=== PATIENT | female | born 1970 | race Caucasian/White ===

== ENCOUNTER 2019-03-20 18:34 | Emergency (ER) | payer MEDICARE, SELFPAY ==
--- NOTE | 2019-03-20 18:41 | ED.GENADULT ---
HPI - General Adult General Chief complaint: Upper Respiratory Infection Stated complaint: head cold Time Seen by Provider: 03/20/19 19:13 Source: patient Mode of arrival: ambulatory Limitations: no limitations and physical limitation (deaf) History of Present Illness HPI narrative: 48-year-old female patient presents to the [facility] with complaints of cold symptoms that started yesterday. Patient states she has had a headache, nasal congestion, fullness to the ears but denies any sore throat or coughing. Denies any chest pain or shortness of breath. Patient states that she did get a flu shot this year. Patient states that she is an active smoker. Patient states she has tried taking some Aleve but that is it Related Data Home Medications Medication Instructions Recorded Confirmed insulin glargine [Lantus U-100 20 unit SUBCUT HS 03/20/19 03/20/19 Insulin] insulin lispro [Humalog U-100 5 unit SUBCUT TID 03/20/19 03/20/19 Insulin] Allergies Allergy/AdvReac Type Severity Reaction Status Date / Time No Known Allergies Allergy Verified 03/20/19 19:04 Review of Systems Review of Systems: Narrative: CONSTITUTIONAL: Positive for subjective fever, chills, body aches and sweats. EYES: Denies visual changes, redness, or discharge. ENT: Positive rhinorrhea, congestion, denies sore throat, or otalgia. CARDIOVASCULAR: Denies chest pain, palpitations, or edema. RESPIRATORY: Denies cough or dyspnea. GASTROINTESTINAL: Denies abdominal pain, nausea, vomiting, or diarrhea. GENITOURINARY: Denies dysuria or hematuria. SKIN: Denies rash or itching. MUSCULOSKELETAL: Denies back pain, joint pain, or myalgia. NEUROLOGIC: Positive headache, denies numbness, or weakness. PSYCHIATRIC: Denies anxiety or depression. PMFSH Comments At the time of my signature I agree with nursing past medical history, surgical, social, and family history. There is no relevant family history pertinent to the presenting complaint. Exam Narrative: Exam Narrative: GENERAL: ill-appearing, well-nourished, and in no acute distress. HEAD: Normocephalic, atraumatic. No tenderness noted to frontal maxillary sinuses on palpation EYES: PERRLA and EOMI. ENT: Nares with erythema and edema noted bilaterally, no rhinorrhea or epistaxis. Mucous membranes moist. Posterior pharynx with no erythema, tonsillar margin, exudates or lesions present. Bilateral TMs are clear with no erythema or foreign bodies in the canal. NECK: Supple. No lymphadenopathy CHEST: Clear to auscultation. No respiratory distress. HEART: Regular rate and rhythm. No murmur heard. Normal peripheral pulses. ABDOMEN: Soft, nontender, nondistended, normal active bowel sounds. EXTREMITIES: Normal range of motion. No edema. SKIN: Warm, dry, no rash. NEURO: No focal deficits. Alert and oriented x3. Course Reevaluation(s) Reevaluation #1: Notify patient that her bedside influenza test is negative today. Discussed with her we will treat her as a virus and discharge her home with a nasal steroid and a daily antihistamine to help with the congestion symptoms she can continue taking Tylenol and ibuprofen as needed for body aches fevers and pains and will take anywhere from 5 days to 2 weeks for the virus past. Patient verbalized understanding denies any other questions or concerns at this time. Date: 03/20/19 Time: 19:37 Vital Signs Vital signs: Vital Signs Temperature 37.2 C 03/20/19 18:50 Pulse Rate 80 03/20/19 18:50 Respiratory Rate 16 03/20/19 18:50 Blood Pressure 135/80 03/20/19 18:50 Pulse Oximetry 99 03/20/19 18:50 Temperature 37.2 C 03/20/19 18:50 Pulse Rate 80 03/20/19 18:50 Respiratory Rate 16 03/20/19 18:50 Blood Pressure 135/80 03/20/19 18:50 Pulse Oximetry 99 03/20/19 18:50 Vital signs reviewed The patient has been informed that they may have pre-hypertension or Hypertension based on a BP reading in the department. I recommend that the patient call the
[2019-03-20 18:50] VITALS: BP 135/80; PULSE 80; RESP 16; TEMP 37.2; O2SAT 99
== END 2019-03-20 19:47 | disposition home or self-care (01) ==
PROVIDERS: Emergency Provider Nurse Practitioner Family
DX: J06.9 Acute upper respiratory infection, unspecified (principal); J00 Acute nasopharyngitis [common cold]; J01.90 Acute sinusitis, unspecified; R05 Cough; E11.9 Type 2 diabetes mellitus without complications; Z79.4 Long term (current) use of insulin
CPT/HCPCS: 87804; 99203; G0463

== ENCOUNTER 2019-07-13 11:47 | Emergency (ER) | payer MEDICARE, SELFPAY ==
[2019-07-13 12:26] VITALS: BP 144/79; PULSE 106; RESP 20; TEMP 36.6; O2SAT 99
--- NOTE | 2019-07-13 12:40 | ED.DENTAL ---
HPI - Dental/Oral General Chief complaint: Dental/Oral Stated complaint: Tooth pain Time Seen by Provider: 07/13/19 12:40 Source: patient and RN notes reviewed Mode of arrival: ambulatory Limitations: other (deaf; mouth reading/written) History of Present Illness HPI Narrative: This is a 49 years old female presented office for evaluation of dental pain for one week. Associated with facial swelling and pain. Pain is getting worse for the couple days; states she has been eating much due to pain. She has tried otc pain relief along with mouth wash. Teeth map: 1. gum is swelling; tooth is very carious. Related Data Home Medications Medication Instructions Recorded Confirmed insulin detemir U-100 [Levemir 32 unit SUBCUT DAILY 07/13/19 07/13/19 U-100 Insulin] levothyroxine 112 mcg PO DAILY 07/13/19 07/13/19 lisinopril 2.5 mg PO DAILY 07/13/19 07/13/19 lovastatin 20 mg PO DAILY 07/13/19 07/13/19 metformin 1,000 mg PO DAILY 07/13/19 07/13/19 sertraline 50 mg PO DAILY 07/13/19 07/13/19 Allergies Allergy/AdvReac Type Severity Reaction Status Date / Time No Known Allergies Allergy Verified 07/13/19 12:28 Review of Systems Review of Systems: Narrative: CONSTITUTIONAL: Denies fever. Reports chills/sweat ENT: Reports dental pain with facial swelling and warmth to touch CARDIOVASCULAR: Denies chest pain; however she reports that her heart rate is a little fast. RESPIRATORY: Denies dyspnea GASTROINTESTINAL: Denies abdominal pain,vomiting, diarrhea. Reports nausea. SKIN: Denies rash MUSCULOSKELETAL: Denies acute back pain NEUROLOGIC: Denies lightheaded PMFSH Comments At time of signature, I agree with nursing past medical, surgical, social and family history. There is no relevant family history pertinent to the presenting complaint. Exam Narrative: Exam Narrative: GENERAL: This is a well-nourished, well-developed patient, in no apparent distress. ENT: The tooth in question is very carious and the gum is swollen and tender around it. There is no facial swelling, cervical or submandibular lymphadenopathy. The patient appears uncomfortable and in pain. CARDIOVASCULAR: Regular rate and rhythm without murmurs, gallops, or rubs. RESPIRATORY: Clear to auscultation. Breath sounds equal bilaterally. No wheezes, rales, or rhonchi. GASTROINTESTINAL: Abdomen soft, non-tender, nondistended. Bowel sounds are active. No guarding. NEURO: awake, alert, and oriented to person, place and time. There were no obvious focal neurologic abnormalities. Course Vital Signs Vital signs: Vital Signs Temperature 97.9 F 07/13/19 12:26 Pulse Rate 106 H 07/13/19 12:26 Respiratory Rate 07/13/19 12:26 Blood Pressure 144/79 H 07/13/19 12:26 Pulse Oximetry 99 07/13/19 12:26 Temperature 97.9 F 07/13/19 12:26 Pulse Rate 106 H 07/13/19 12:26 Respiratory Rate 07/13/19 12:26 Blood Pressure 144/79 H 07/13/19 12:26 Pulse Oximetry 99 07/13/19 12:26 MDM - Dental/Oral MDM Narrative Medical decision making narrative: Elevated BP noted: I recommend the patient call the primary care provider listed on their discharge instructions to arrange follow-up for further evaluation of hypertension within 1-2week. Discharge instructions reviewed with patient, as well as provided in writing per nursing staff. The instructions also include specific and strict return/GO TO THE ER as well as f/u information. All questions have been answered, and the patient deny any further questions with discharge and discharge plan. Differential Diagnosis Differential diagnosis: Likely gingival abscess, dental caries, toothache, dental abscess, fracture of tooth and aphthous ulcer Critical Care Time Critical Care Time Critical Care Time: No Discharge Plan Discharge Clinical Impression: Dental abscess Patient Disposition: Home, Self-Care Condition: Stable Instructions: Antibiotic Form, Toothache (ED) Additional Instr
== END 2019-07-13 12:56 | disposition home or self-care (01) ==
PROVIDERS: Emergency Provider Nurse Practitioner
DX: K04.7 Periapical abscess without sinus (principal); Z79.4 Long term (current) use of insulin; Z79.84 Long term (current) use of oral hypoglycemic drugs; I10 Essential (primary) hypertension; I11.9 Hypertensive heart disease without heart failure; E03.9 Hypothyroidism, unspecified; F32.9 Major depressive disorder, single episode, unspecified
CPT/HCPCS: 99213; G0463

== ENCOUNTER 2020-10-29 10:40 | Emergency (ER) | payer MEDICARE, SELFPAY ==
[2020-10-29 10:50] VITALS: BP 134/75; PULSE 84; RESP 18; TEMP 36.6; O2SAT 97
--- NOTE | 2020-10-29 11:11 | ED.DENTAL ---
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 Patient has not seen a dentist in years but states that she had something similar on the left side a couple of years ago. Denies fevers. No nausea vomiting. No abdominal pain or chest pain Related Data Home Medications Medication Instructions Recorded Confirmed insulin detemir U-100 [Levemir 32 unit SUBCUT DAILY 07/13/19 10/29/20 U-100 Insulin] levothyroxine 112 mcg PO DAILY 07/13/19 10/29/20 lisinopril 2.5 mg PO DAILY 07/13/19 10/29/20 lovastatin 20 mg PO DAILY 07/13/19 10/29/20 metformin 1,000 mg PO DAILY 07/13/19 10/29/20 sertraline 50 mg PO DAILY 07/13/19 10/29/20 Allergies Allergy/AdvReac Type Severity Reaction Status Date / Time No Known Allergies Allergy Verified 07/13/19 12:28 Review of Systems Review of Systems: All systems reviewed & are unremarkable except as noted in HPI and below Constitutional: Constitutional: Reports no additional constitutional complaints, Denies chills and Denies fever(s) Eyes: Eyes: Reports no additional eye complaints ENT: Reports as per HPI Comments: Right dental upper pain, facial swelling Cardiovascular: Cardiovascular: Reports no additional cardiovascular complaints Respiratory: Respiratory: Reports no additional respiratory complaints Gastrointestinal: Gastrointestinal: Reports no additional gastrointestinal complaints Musculoskeletal: Musculoskeletal: Reports no additional musculoskeletal complaints Integumentary/Breasts: Skin/Breast: Reports system reviewed and no additional complaints, except as docu Neurologic: Reports system reviewed and no additional complaints, except as documented Psychiatric: Psychiatric: Reports no additional psychiatric complaints Allergic/Immunologic: Allergic/Immunologic: Reports no additional allergic/immunologic complaints [facility] Past Medical History Medical History (Updated 10/29/20 @ 11:30 by Natalia Thorne) Deaf Diabetes Thyroid disease Social History Social History (Updated 10/29/20 @ 11:30 sera Zamarripa Smoking status: Never smoker Substance use: never Living arrangements: with friend(s) Gender identity (if verbalized by the patient): Female Comments At the time of my signature, I reviewed and agree with the nursing past medical, surgical, social, and family history. There is no relevant family history pertinent to the patient complaint. Exam Const: General: healthy appearing, no acute distress and alert Orientation/consciousness: patient oriented x3 Limitations: no limitations HENMT: Head: normal to inspection Ears: external ears normal, TM's normal bilaterally and EAC's normal Other: Right-sided facial swelling. Dental decay noted in teeth 3 and 14. Tooth 3 swollen with gingival redness and fluctuance. No lymphadenopathy Eyes: Conjunctivae: conjunctivae normal Pupils: Equal, round and reactive pupils present Neck: Neck: normal visual inspection, no lymphadenopathy and no meningeal signs Chest: Chest palpation & inspection: normal inspection of the chest Resp: Effort & Inspection: normal respiratory effort Auscultation: clear to auscultation bilaterally Cardio: Rate: regular rate Rhythm: regular rhythm : General: Yes no CVA tenderness Back/Spine/Pelvis: Back: no CVA tenderness Skin: General skin exam: normal color Rashes: no rashes Wounds: no wounds Neuro: General: patient oriented x3, moves all extremities, no meningeal signs and no focal motor deficits Speech: normal speech Gait exam (Neuro): Normal gait present Extrem: Gener
== END 2020-10-29 11:29 | disposition home or self-care (01) ==
PROVIDERS: Emergency Provider Nurse Practitioner; PCP Family Medicine
DX: K04.7 Periapical abscess without sinus (principal); E11.9 Type 2 diabetes mellitus without complications; E03.9 Hypothyroidism, unspecified; H91.90 Unspecified hearing loss, unspecified ear
CPT/HCPCS: 99213; G0463

== ENCOUNTER 2020-12-14 18:23 | Emergency (ER) | payer MEDICARE, SELFPAY ==
[2020-12-14 18:35] VITALS: BP 136/85; PULSE 85; RESP 16; TEMP 37; O2SAT 98
[2020-12-14 18:44] VITALS: BP 136/85; PULSE 85; RESP 16; TEMP 37; O2SAT 98
--- NOTE | 2020-12-14 18:52 | ED.UPPEXIN ---
HPI - Extremity Injury (Upper) General Chief Complaint: Extremity Injury, Upper Stated Complaint: injury Time Seen by Provider: 12/14/20 19:00 Source: patient Mode of arrival: ambulatory Limitations: language barrier History of Present Illness HPI narrative: Siria is a 50-year-old female patient who ambulated into the [facility] accompanied by her friend. Patient states she reads lips. Her friend also uses sign language. Patient denied the use of an full time staff interpreter. Patient states her left index finger is red and swollen and warm to the touch. Patient states the pain has increased and is going up her left arm. Patient denies any injury. Related Data Home Medications Medication Instructions Recorded Confirmed insulin detemir U-100 [Levemir 32 unit SUBCUT DAILY 07/13/19 12/14/20 U-100 Insulin] levothyroxine 112 mcg PO DAILY 07/13/19 12/14/20 lisinopril 2.5 mg PO DAILY 07/13/19 12/14/20 lovastatin 20 mg PO DAILY 07/13/19 12/14/20 metformin 1,000 mg PO DAILY 07/13/19 12/14/20 sertraline 50 mg PO DAILY 07/13/19 12/14/20 Allergies Allergy/AdvReac Type Severity Reaction Status Date / Time No Known Allergies Allergy Verified 07/13/19 12:28 Review of Systems Review of Systems: CONSTITUTIONAL: Denies body aches, fever, chills, or sweats. EYES: Denies visual changes, redness, or discharge. ENT: Denies rhinorrhea, congestion, sore throat, or otalgia. CARDIOVASCULAR: Denies chest pain, palpitations, or edema. RESPIRATORY: Denies cough or dyspnea. GASTROINTESTINAL: Denies abdominal pain, nausea, vomiting, or diarrhea. GENITOURINARY: Denies dysuria or hematuria. SKIN: + left finger swelling , erythema. MUSCULOSKELETAL: Denies back pain, + Left finger pain. NEUROLOGIC: Denies headache, numbness, tingling, or weakness. PSYCH: Denies depression or anxiety. [facility] Past Medical History Medical History (Updated 12/14/20 @ 19:04 by ULYSSES West) Deaf Diabetes Thyroid disease Social History Social History (Updated 10/29/20 @ 11:30 by Natalia Thorne) Smoking status: Never smoker Substance use: never Gender identity (if verbalized by the patient): Female Exam Narrative: GENERAL: Well-appearing, well-nourished, and in no acute distress. HEAD: Normocephalic, atraumatic. EYES: EOMI. No redness or drainage. Conjunctivae normal. ENT: Mucous membranes pink and moist. Nares clear. No rhinorrhea. NECK: Normal AROM. Supple. No lymphadenopathy. CHEST: No respiratory distress. MUSCULOSKELETAL: No bony tenderness. EXTREMITIES: Normal range of motion. Left index finger with full ROM, distal sensation intact. SKIN: Left index finger warm, erythemic, with edema. small open area pinpoint MCP joint. NEURO: No focal deficits. Alert and oriented x3. Gait steady. PSYCH: Normal affect. No signs of depression or anxiety. Course Vital Signs Vital signs: Vital Signs Temperature 37.0 C 12/14/20 18:35 Pulse Rate 85 12/14/20 18:35 Respiratory Rate 16 12/14/20 18:35 Blood Pressure 136/85 12/14/20 18:35 Pulse Oximetry 98 12/14/20 18:35 Temperature 37.0 C 12/14/20 18:44 Pulse Rate 85 12/14/20 18:44 Respiratory Rate 16 12/14/20 18:44 Blood Pressure 136/85 12/14/20 18:44 Pulse Oximetry 98 12/14/20 18:44 MDM - Extremity Injury (Upper) MDM Narrative Medical decision making narrative: Patient has left index finger cellulitis. Left index finger is red, warm, with edema. Patient was instructed to take antibiotics as prescribed. Use ibuprofen every 8 hours and may use Tylenol in between for pain. Wash area twice daily with a mild soap such as Dial. Follow-up with her primary care in 2 to 3 days if no improvement. Or go to the emergency department for severe pain increased erythema or streaking. Differential Diagnosis Differential diagnosis: Likely finger sprain and other (paronchia, cellulitis) Medical Records Attestation: I reviewed the patient's medical records. Critic
== END 2020-12-14 19:09 | disposition home or self-care (01) ==
PROVIDERS: Emergency Provider Nurse Practitioner Family
DX: L03.012 Cellulitis of left finger (principal); E11.9 Type 2 diabetes mellitus without complications; E07.9 Disorder of thyroid, unspecified; H91.90 Unspecified hearing loss, unspecified ear
CPT/HCPCS: 99213; G0463

== ENCOUNTER 2021-06-24 16:22 | Emergency (ER) | payer MEDICARE, SELFPAY ==
[2021-06-24 16:44] VITALS: BP 143/74; PULSE 85; RESP 16; TEMP 36.6; O2SAT 99
--- NOTE | 2021-06-24 17:19 | ED.GENADULT ---
HPI - General Adult General Chief complaint: Extremity Injury, Upper Stated complaint: Skin Sore/Finger Time Seen by Provider: 06/24/21 17:19 Source: patient Mode of arrival: ambulatory Limitations: no limitations History of Present Illness HPI narrative: 51-year-old female presented for complaints of pain, swelling, and redness to the cuticle of the left middle finger for a few days. Denies active drainage. She has not attempted to drain the site. Related Data Home Medications Medication Instructions Recorded Confirmed insulin detemir U-100 [Levemir 32 unit SUBCUT DAILY 07/13/19 06/24/21 U-100 Insulin] levothyroxine 112 mcg PO DAILY 07/13/19 06/24/21 lisinopril 2.5 mg PO DAILY 07/13/19 06/24/21 lovastatin 20 mg PO DAILY 07/13/19 06/24/21 metformin 1,000 mg PO DAILY 07/13/19 06/24/21 sertraline 50 mg PO DAILY 07/13/19 06/24/21 insulin aspart U-100 [Novolog See Rx Instructions .ROUTE .COMPLEX 06/24/21 06/24/21 U-100 Insulin aspart] Allergies Allergy/AdvReac Type Severity Reaction Status Date / Time No Known Allergies Allergy Verified 06/24/21 16:48 Review of Systems Review of Systems: CONSTITUTIONAL: Denies body aches, fever, chills, or sweats. EYES: Denies visual changes, redness, or discharge. ENT: Denies rhinorrhea, congestion, sore throat, or otalgia. CARDIOVASCULAR: Denies chest pain, palpitations, or edema. RESPIRATORY: Denies cough or dyspnea. GASTROINTESTINAL: Denies abdominal pain, nausea, vomiting, or diarrhea. GENITOURINARY: Denies dysuria or hematuria. SKIN: Left finger swelling MUSCULOSKELETAL: Denies back pain, joint pain, or myalgia. NEUROLOGIC: Denies headache, numbness, tingling, or weakness. PSYCH: Denies depression or anxiety. [facility] Past Medical History Medical History (Updated 06/24/21 @ 17:35 by Dianne Silva APRN) Deaf Diabetes Thyroid disease Social History Social History Smoking status: Never smoker Substance use: never Gender identity (if verbalized by the patient): Female Comments At time of signature, I have reviewed and agree with nursing past medical, surgical, social and family history unless otherwise noted. Please see nursing chart for further information. There is no relevant family history pertinent to the presenting complaint Exam Narrative: GENERAL: Well-appearing, well-nourished, and in no acute distress. HEAD: Normocephalic, atraumatic. EYES: PERRLA, conjunctivae clear, and EOMI. ENT: Mucous membranes moist. Oropharynx without edema, erythema or lesions. NECK: Supple. No lymphadenopathy CHEST: Clear to auscultation. No respiratory distress. HEART: Regular rate and rhythm. SKIN: Warm, dry. Left third digit paronychia NEURO: Alert and oriented x3. PSYCH: Normal mood and affect Course Course Emergency Course: Patient is aware of diagnosis, understands and agrees to treatment plan. Anticipatory guidance given. Patient agrees to follow-up as directed and is aware of reasons to seek care at the emergency department. Portions of this record may have been created with voice recognition software Level of Care: [facility] Visit Vital Signs Vital signs: Vital Signs Temperature 97.9 F 06/24/21 16:44 Pulse Rate 85 06/24/21 16:44 Respiratory Rate 16 06/24/21 16:44 Blood Pressure 143/74 H 06/24/21 16:44 Pulse Oximetry 99 06/24/21 16:44 Temperature 97.9 F 06/24/21 16:44 Pulse Rate 85 06/24/21 16:44 Respiratory Rate 16 06/24/21 16:44 Blood Pressure 143/74 H 06/24/21 16:44 Pulse Oximetry 99 06/24/21 16:44 Reviewed Procedures Abscess I/D Left third digit: Date of Incision: 06/24/21 Sedation/analgesia: none Local Anesthetic: none Technique: needle aspiration Abcess I&D Additional Comments: Wound cleansed. Using 18-gauge needle, fluctuant center of the paronychia was punctured, small amount of purulent material was d
== END 2021-06-24 17:35 | disposition home or self-care (01) ==
PROVIDERS: Emergency Provider Nurse Practitioner Family; PCP Family Medicine
DX: L03.012 Cellulitis of left finger (principal); E11.9 Type 2 diabetes mellitus without complications; Z79.4 Long term (current) use of insulin
CPT/HCPCS: 10160; 99212; G0463

== ENCOUNTER 2022-02-04 15:03 | Emergency (ER) | payer MEDICARE, SELFPAY ==
--- NOTE | 2022-02-04 15:06 | ED.SKABFB ---
HPI - Skin/Abscess/Foreign Bdy General Chief complaint: Extremity Problem,Nontraumatic Stated complaint: Right hand sores Time Seen by Provider: 02/04/22 15:06 Source: patient and RN notes reviewed History of Present Illness HPI narrative: patient is a 51-year-old female who presents to the Urgent Care with complaints of a right hand sores. Patient states they been there for approximately 1 week starting to the right shoulder. Patient states those have resolved and scabbed. States that the 1 on the right knuckle open when she was cleaning and has having a lot of pain to the blisters on the dorsal hand. Denies any fevers. States that she has been using Neosporin on the area. Denies any known injury. No acute distress noted. Patient aware of the plan of care. Some parts of this dictation were generated by voice recognition software and may contain typographical and/or grammatical inaccuracies. Related Data Home Medications Medication Instructions Recorded Confirmed insulin detemir U-100 100 unit/mL 32 unit subcut DAILY 07/13/19 06/24/21 subcutaneous solution (Levemir U-100 Insulin) levothyroxine 112 mcg tablet 112 mcg PO DAILY 07/13/19 06/24/21 lisinopril 2.5 mg tablet 2.5 mg PO DAILY 07/13/19 06/24/21 lovastatin 20 mg tablet 20 mg PO DAILY 07/13/19 06/24/21 metformin 1,000 mg tablet 1,000 mg PO DAILY 07/13/19 06/24/21 sertraline 50 mg tablet 50 mg PO DAILY 07/13/19 06/24/21 insulin aspart U-100 100 unit/mL See Rx Instructions .Route .COMPLEX 06/24/21 06/24/21 subcutaneous solution (Novolog U-100 Insulin aspart) Allergies Allergy/AdvReac Type Severity Reaction Status Date / Time No Known Allergies Allergy Verified 06/24/21 16:48 Review of Systems Review of Systems: CONSTITUTIONAL: Denies fever, chills, or sweats. EYES: Denies visual changes, redness, or discharge. ENT: Denies rhinorrhea, congestion, sore throat, or otalgia. CARDIOVASCULAR: Denies chest pain, palpitations, or edema. RESPIRATORY: Denies cough or dyspnea. GASTROINTESTINAL: Denies abdominal pain, nausea, vomiting, or diarrhea. GENITOURINARY: Denies dysuria or hematuria. SKIN: Reports a painful blister to the right hand MUSCULOSKELETAL: Denies back pain, joint pain, or myalgia. NEUROLOGIC: Denies headache, numbness, or weakness. All other systems reviewed are negative, except as documented in HPI. [facility] Past Medical History Medical History (Updated 02/04/22 @ 15:28 by OK Galindo) Deaf Diabetes Thyroid disease Social History Social History Smoking status: Never smoker Substance use: never Gender identity (if verbalized by the patient): Female Comments At the time of my signature, I reviewed and agree with the nursing past medical, surgical, social, and family history. There is no relevant family history pertinent to the patient complaint. Exam Narrative: GENERAL: This is a well-nourished, well-developed patient, in no apparent distress. HEAD: normocephalic, atraumatic. EYES: PERRL. Sclera clear/white. Vision is grossly intact. EARS: External ears normal NOSE: External nose normal with no obvious nasal discharge, nares without redness, no rhinorrhea. THROAT: Mucous membranes moist NECK: Neck supple SKIN: 3 x 3 cm of erythema surrounding a 2 x 2 cm scabbed ulceration to the right MCP of the index finger. Three blisters to the thenar eminence of the right hand with surrounding erythema.warm, intact with no suspicious lesions or rash, good texture and turgor. NEURO: awake, alert, and oriented to person, place and time. There were no obvious focal neurologic abnormalities. EXTREMITIES: No clubbing, cyanosis, or edema. range of motion the right right hand within normal limits with positive strong right radial pulse and capillary refill less than 2 seconds. Course Course Level of Care: Express Care Visit Vital Signs Vital signs: Vital Signs Te
[2022-02-04 15:08] VITALS: BP 145/70; PULSE 69; RESP 16; TEMP 36.9; O2SAT 96
== END 2022-02-04 15:37 | disposition home or self-care (01) ==
PROVIDERS: Emergency Provider Nurse Practitioner Family; PCP Family Medicine
DX: S60.521A Blister (nonthermal) of right hand, initial encounter (principal); E11.9 Type 2 diabetes mellitus without complications; Z79.4 Long term (current) use of insulin; X58.XXXA Exposure to other specified factors, initial encounter
CPT/HCPCS: 99213; G0463

== ENCOUNTER 2022-03-04 17:24 | Emergency (ER) | payer MEDICARE, SELFPAY ==
[2022-03-04 17:29] VITALS: BP 153/96; PULSE 81; RESP 16; TEMP 37.3; O2SAT 99
--- NOTE | 2022-03-04 17:33 | ED.SKABFB ---
HPI - Skin/Abscess/Foreign Bdy General Chief complaint: Skin/Abscess/Foreign Body Stated complaint: swelling on left side of nose Time Seen by Provider: 03/04/22 17:34 Source: patient, RN notes reviewed and old records reviewed Mode of arrival: ambulatory Limitations: no limitations History of Present Illness HPI narrative: 51-year-old female presents to the [facility] with swelling, redness and increased warmth to the left lateral neck air. Started as a sore approximately 2 weeks ago has gradually gotten worse. Swelling noted to the cheek. No erythema or increased warmth to the cheek. Has a history of cellulitis. Related Data Home Medications Medication Instructions Recorded Confirmed insulin detemir U-100 100 unit/mL 32 unit subcut DAILY 07/13/19 03/04/22 subcutaneous solution (Levemir U-100 Insulin) levothyroxine 112 mcg tablet 112 mcg PO DAILY 07/13/19 03/04/22 lisinopril 2.5 mg tablet 2.5 mg PO DAILY 07/13/19 03/04/22 lovastatin 20 mg tablet 20 mg PO DAILY 07/13/19 03/04/22 sertraline 50 mg tablet 50 mg PO DAILY 07/13/19 03/04/22 insulin aspart U-100 100 unit/mL See Rx Instructions .Route .COMPLEX 06/24/21 03/04/22 subcutaneous solution (Novolog U-100 Insulin aspart) azathioprine 50 mg tablet 50 mg PO BID 03/04/22 03/04/22 ergocalciferol (vitamin D2) 1,250 03/04/22 mcg (50,000 unit) capsule gabapentin 300 mg capsule 300 mg PO TID 03/04/22 03/04/22 methadone 5 mg tablet 5 mg PO TID 03/04/22 03/04/22 methocarbamol 500 mg tablet 500 mg PO Q4-6H PRN Muscle Pain 03/04/22 03/04/22 tramadol 50 mg tablet 50 mg PO QID PRN Pain 03/04/22 03/04/22 Allergies Allergy/AdvReac Type Severity Reaction Status Date / Time No Known Allergies Allergy Verified 03/04/22 17:34 Review of Systems Review of Systems: All systems reviewed & are unremarkable except as noted in HPI and below Constitutional: Constitutional: Reports no additional constitutional complaints Eyes: Eyes: Reports no additional eye complaints ENT: Reports system reviewed and no additional complaints, except as documented Cardiovascular: Cardiovascular: Reports no additional cardiovascular complaints, Denies chest pain and Denies dyspnea Respiratory: Respiratory: Reports no additional respiratory complaints, Denies chest congestion, Denies cough and Denies dyspnea Gastrointestinal: Gastrointestinal: Reports no additional gastrointestinal complaints, Denies abdominal pain, Denies nausea and Denies vomiting Musculoskeletal: Musculoskeletal: Reports no additional musculoskeletal complaints Integumentary/Breasts: Skin/Breast: Reports as per HPI and Reports erythema Neurologic: Reports system reviewed and no additional complaints, except as documented Psychiatric: Psychiatric: Reports no additional psychiatric complaints Allergic/Immunologic: Allergic/Immunologic: Reports no additional allergic/immunologic complaints PMFSH Past Medical History Medical History Deaf Diabetes History of high blood pressure Thyroid disease Social History Social History Smoking status: Never smoker Substance use: never Gender identity (if verbalized by the patient): Female Comments At the time of my signature, I reviewed and agree with the nursing past medical, surgical, social, and family history. There is no relevant family history pertinent to the patient complaint. Exam Const: General: cooperative, healthy appearing, comfortable, no acute distress, well developed, alert and well nourished Nutritional Appearance: well nourished Orientation/consciousness: patient oriented x3 Limitations: no limitations HENMT: Head: normal to inspection Ears: hearing grossly normal bilaterally and external ears normal Face/Nose/Sinus: Normal external nose present, Normal nares present, Normal nasal mucous membranes and turbinates present and normal facial
== END 2022-03-04 17:49 | disposition home or self-care (01) ==
PROVIDERS: Emergency Provider Nurse Practitioner; PCP Family Medicine
DX: J34.0 Abscess, furuncle and carbuncle of nose (principal); E11.9 Type 2 diabetes mellitus without complications; I10 Essential (primary) hypertension; E07.9 Disorder of thyroid, unspecified
CPT/HCPCS: 99213; G0463